=== PATIENT | female | born 1965 | race American Indian/Alaskan Native ===

== ENCOUNTER 2017-02-08 14:34 | Emergency (ER) | payer MEDICARE, MEDICAID ==
[2017-02-08 15:16] VITALS: TEMP 99; BMI 35.0
--- NOTE | 2017-02-08 16:19 | ED PDOC ---
Arrival/HPI - General Historian: Patient - General Chief Complaint: Lower Extremity Problem/Injury Time Seen by Provider: 02/08/17 15:28 - History of Present Illness Narrative History of Present Illness (Text): 02/08/17 16:16 51 yo F w/ pmh of HTN and DM, presents c/o 2 day h/o atraumtic constant pinching type pain in the R antecubital fossa and the posterior b/l thighs radiating to the lower back, with no improvement from motrin. Denies any fever, chills, swelling, redness, CP, SOB, neck pain, back pain, abdominal pain, N/V, urinary symptoms, bowel / bladder incontinence, extremity weakness, numbness, recent travel / hospitalization / surgery. On further questioning, patient states that she is complaint with her DM medications, however is not monitoring her BS and is not fully following her DM diet. PMD Monico ([place] PAZ,Dorinda Burns) Past Medical History - Provider Review Nursing Documentation Reviewed: Yes - Infectious Disease Hx of Infectious Diseases: None - Tetanus Immunization Tetanus Immunization: Unknown - Cardiac Hx Hypertension: Yes - Pulmonary Hx Bronchitis: Yes - Neurological Hx Neurological Disorder: No - HEENT Hx HEENT Disorder: Yes Other/Comment: Obstructive Sleep Apnea - Renal Hx Renal Disorder: No - Endocrine/Metabolic Hx Diabetes Mellitus Type 2: Yes - Hematological/Oncological Hx Blood Disorders: No - Integumentary Hx Dermatological Disorder: No - Musculoskeletal/Rheumatological Hx Musculoskeletal Disorders: Yes Hx Falls: No Other/Comment: Chronic Radicular Neck Pain - Gastrointestinal Hx Gastroesophageal Reflux: Yes (for about one year) - Genitourinary/Gynecological Hx Genitourinary Disorders: No - Psychiatric Hx Psychophysiologic Disorder: No Hx Depression: No Hx Emotional Abuse: No Hx Physical Abuse: No Hx Substance Use: No - Surgical History Hx Cholecystectomy: Yes (2005) Other/Comment: unbilical hernia sx 2005 and 2010 with mesh - Anesthesia Hx Anesthesia: Yes - Suicidal Assessment Feels Threatened In Home Enviroment: No Family/Social History - Physician Review Nursing Documentation Reviewed: Yes Family/Social History: No Known Family HX Smoking Status: Former Smoker Hx Alcohol Use: No Hx Substance Use: No Hx Substance Use Treatment: No Allergies/Home Meds Allergies/Adverse Reactions: Allergies No Known Allergies Allergy (Verified 02/08/17 15:16) Home Medications: Home Meds Medication Instructions Recorded Confirmed Metformin HCl [Metformin HCl] 850 mg PO BID 02/05/15 02/08/17 amLODIPine [Norvasc] 10 mg PO DAILY 04/12/16 02/08/17 Review of Systems - Review of Systems Constitutional: Normal. absent: Fatigue, Weight Change, Fevers Respiratory: Normal. absent: SOB, Cough, Sputum Cardiovascular: Normal. absent: Chest Pain, Palpitations, Syncope Musculoskeletal: Normal, Arthralgias. absent: Back Pain, Neck Pain Skin: Normal. absent: Rash, Pruritis, Skin Lesions Neurological: Normal. absent: Headache, Dizziness, Focal Weakness Physical Exam - Physical Exam Narrative Physical Exam (Text): 02/08/17 16:18 GENERAL APPEARANCE: Patient is awake, alert, oriented x 3, in mild painful distress. SKIN: Warm, dry; (-) cyanosis. EYES: (-) conjunctival pallor. ENMT: Mucous membranes moist. NECK: (-) tenderness, (-) stiffness, (-) lymphadenopathy. CHEST AND RESPIRATORY: (-) rales, (-) rhonchi, (-) wheezes; breath sounds equal bilaterally. HEART AND CARDIOVASCULAR: (-) irregularity; (-) murmur, (-) gallop. ABDOMEN AND GI: Soft; (-) tenderness; (-) palpable mass. BACK: (-) paravertebral tenderness, (-) spasm, (-) direct bony tenderness, (-) deformity. Straight leg raising (-) bilaterally. EXTREMITIES: (+) mild tenderness to the posterior b/l thighs, (-) edema, (+) FROM, (-) deformity. Distal pulses good bilaterally. NEURO AND PSYCH: Mental status as above. Intact sensation bilaterally; normal strength in extension of the knees, plantar and dorsiflexion of the toes. DTRs symmetric. ([place] PAZ,Dorinda Burns) Vital Signs Temp Pulse Resp BP Pulse Ox 02/08/17 15:18 99.0 F 100 H 17 155/86 H 97 02/08/17 15:15 99.0 F 100 H 17 155/86 H 97 Medical Decision Making ED Course and Treatment: 02/08/17 16:22 I was available for consultation during PA evaluation. The chart was reviewed by me, and I agree with disposition. (Luanne Jackson) 02/08/17 16:18 51 yo F w/ pmh of HTN and DM, presents c/o 2 day h/o atraumtic constant pinching type pain in the R antecubital fossa and the posterior b/l thighs radiating to the lower back. Based on history and exam, likely DM neuropathy. Plan : - Labs - Tylenol Labs reviewed : glucose is 268, otherwise is wnl. Lab results d/w the patient in great detail. On re-evaluation, patient is laying in bed comfortably in no acute distress. Has no additional complaints at this time. Notified of likely dx of DM neuropathy, advised that she needs better control of her BS, advised to start checking her FS daily, start to f/u DM diet, and exercise regularly. Otherwise to f/u with her pmd in 2 days for re-evaluation, to take tylenol for pain. Return to the ER at any time for any new or worsening symptoms. ([place] PAZ,Dorinda Burns) - Lab Interpretations Lab Results: 02/08/17 16:25 02/08/17 16:25 Lab Results 02/08/17 16:25: Sodium 139, Potassium 3.8, Chloride 99, Carbon Dioxide 27, Anion Gap 17, BUN 16, Creatinine 0.9, Est GFR ( Amer) > 60, Est GFR (Non- Af Amer) > 60, Random Glucose 268 H, Calcium 10.5, Total Bilirubin 0.5, AST 49 H , ALT 50, Alkaline Phosphatase 82, Total Creatine Kinase 119, Total Protein 7.8 , Albumin 4.4, Globulin 3.4, Albumin/Globulin Ratio 1.3 02/08/17 16:25: WBC 7.7, RBC 4.89, Hgb 13.8, Hct 39.7, MCV 81.2, MCH 28.2, MCHC 34.8, RDW 13.1, Plt Count 289, MPV 9.3, Gran % 58.0, Lymph % (Auto) 34.4, [place] % (Auto) 5.9, Eos % (Auto) 1.4 L, Baso % (Auto) 0.3, Gran # 4.45, Lymph # 2.6, [place] # 0.5, Eos # 0.1, Baso # 0.02 - Medication Orders Current Medication Orders: Discontinued Medications Acetaminophen (Tylenol 325mg Tab) 975 mg PO STAT STA Stop: 02/08/17 15:53 Last Admin: 02/08/17 16:22 Dose: 975 mg - PA / NEW CLIENT BANKING SERVICES CLERK / Resident Statement MD/DO has reviewed & agrees with the documentation as recorded. Disposition/Present on Arrival - Present on Arrival Any Indicators Present on Arrival: No History of DVT/PE: No History of Uncontrolled Diabetes: No Urinary Catheter: No History of Decub. Ulcer: No History Surgical Site Infection Following: None - Disposition Have Diagnosis and Disposition been Completed?: Yes Disposition Time: 17:15 Patient Plan: Discharge - Disposition Diagnosis: Arm pain, Bilateral thigh pain, Neuropathy Disposition: HOME/ ROUTINE Patient Problems: Current Active Problems Problem Status Onset Arm pain Acute Bilateral thigh pain Acute Neuropathy Acute Condition: STABLE Discharge Instructions (ExitCare): Diabetic Neuropathy (ED) Print Language: TELUGU Additional Instructions: Thank you for letting us take care of you today. You were treated for arm pain, b/l thigh pain, likely DM neuropathy. The emergency medical care you received today was directed at your acute symptoms. Take over the counter tylenol for pain. Monitor your blood glucose, continue to follow DM diet. Return to the Emergency Department if your symptoms worsen, do not improve, or if you have any other problems. Please contact your doctor in 2 days for re-evaluation and follow up. Bring any paperwork you were given at discharge with you along with any medications you are taking to your follow up visit. Our treatment cannot replace ongoing medical care by a primary care provider (PCP) outside of the emergency department. Thank you for allowing the [facility] team to be part of your care today. Referrals: Omero Marc MD [Primary Care Provider] - Follow up with primary Forms: [employer] ([place]o)
[2017-02-08 16:47] LABS: BASO # 0.02 K/mm3 (0.0-2.0); BASO % 0.3 % (0.0-3.0); EOS # 0.1 (0.0-0.7); EOS % 1.4 % (1.5-5.0); GRAN # 4.45 (1.4-6.5); HEMATOCRIT 39.7 % (36.0-48.0); LYMPH # 2.6 (1.2-3.4); LYMPH % 34.4 % (22.0-35.0); MEAN CELL VOLUME 81.2 fl (80.0-105.0); MEAN CORPUSCULAR HEMOGLOBIN 28.2 pg (25.0-35.0); MEAN CORPUSCULAR HGB CONC 34.8 g/dl (31.0-37.0); MEAN PLATELET VOLUME 9.3 fl (7.0-11.0); MONO # 0.5 (0.1-0.6); MONO % 5.9 % (1.0-6.0); RED CELL DISTRIBUTION WIDTH 13.1 % (11.5-14.5); WHITE BLOOD COUNT 7.7 10^3/ul (4.5-11.0)
[2017-02-08 16:58] LABS: ALB/GLOB RATIO 1.3 (1.1-1.8); ALKALINE PHOSPHATASE 82 U/L (38-126); ALT/SGPT 50 U/L (7-56); AST/SGOT 49 U/L (14-36); BILIRUBIN,TOTAL 0.5 mg/dL (0.2-1.3); BLOOD UREA NITROGEN 16 mg/dL (7-21); CALCIUM 10.5 mg/dL (8.4-10.5); CARBON DIOXIDE 27 mmol/L (21-33); CHLORIDE 99 mmol/L (98-107); GFR AFRICAN-AMERICAN > 60; GLUCOSE,RANDOM 268 mg/dL (70-110); POTASSIUM 3.8 mmol/L (3.6-5.0); SODIUM 139 mmol/L (132-148); TOTAL PROTEIN 7.8 g/dL (5.8-8.3)
[2017-02-08 18:12] VITALS: BP 143/73; PULSE 90; RESP 18; O2SAT 98
== END 2017-02-08 18:13 | disposition home or self-care (01) ==
LOC: ED 14:34
DX: M79.651 Pain in right thigh (principal); M79.652 Pain in left thigh; G62.9 Polyneuropathy, unspecified; M79.601 Pain in right arm; I10 Essential (primary) hypertension; E11.9 Type 2 diabetes mellitus without complications